=== PATIENT | female | born 1965 | race Caucasian/White ===

== ENCOUNTER → 2021-02-11 | Outpatient (CLI) | payer OTHER | LOC: CT 02-06 09:00 | DX: I63.9 Cerebral infarction, unspecified (principal); I65.29 Occlusion and stenosis of unspecified carotid artery; R26.1 Paralytic gait; G81.14 Spastic hemiplegia affecting left nondominant side; I65.21 Occlusion and stenosis of right carotid artery | CPT/HCPCS: 36415; 70498; 82565; 84520; Q9963 ==